=== PATIENT | female | born 1955 | race African-American/Black ===

== ENCOUNTER 2018-05-01 13:54 | Emergency (ER) | payer OTHER ==
[~2018-05-01] VITALS: Ht 170.2 cm; Wt 68.0 kg
[~2018-05-01 13:54] MED LIST: LOSA-20 MT
[2018-05-01 14:07] VITALS: BP 136/75
== END 2018-05-01 22:30 | disposition left against medical advice (07) ==
LOC: ER 13:54
DX: R07.89 Other chest pain (principal); R05 Cough; Z53.21 Procedure and treatment not carried out due to patient leaving prior to being seen by health care provider
CPT/HCPCS: 93005